=== PATIENT | female | born 1980 | race Caucasian/White ===

== ENCOUNTER 2016-05-17 01:03 | Emergency (ER) | payer OTHER ==
[~2016-05-17] VITALS: Ht 170.2 cm; Wt 170.4 kg
[~2016-05-17 01:03] MED LIST: KEFLEX500 MG PO
[2016-05-17] MEDS ORDERED: MORPHINE SULFAT45 MG PO (07:53)
[2016-05-17] MEDS ORDERED: OXYCODONE HCL10 MG PO (07:54)
[2016-05-17 09:58] VITALS: BP 126/63
== END 2016-05-17 10:00 | disposition home or self-care (01) ==
LOC: EME 01:03
DX: G43.909 Migraine, unspecified, not intractable, without status migrainosus (principal); G89.29 Other chronic pain; F11.20 Opioid dependence, uncomplicated; E66.01 Morbid (severe) obesity due to excess calories; Z68.43 Body mass index [BMI] 50.0-59.9, adult; F17.200 Nicotine dependence, unspecified, uncomplicated
CPT/HCPCS: 99281; 99284; J2270